=== PATIENT | male | born 1950 | race Caucasian/White ===

== ENCOUNTER 2017-10-27 12:56 | Emergency (ER) | payer MEDICARE, MEDICAID ==
[~2017-10-27] VITALS: Ht 170.2 cm; Wt 63.8 kg
[~2017-10-27 12:56] MED LIST: NO HOME MEDS
[2017-10-27 13:27] LABS: BASOPHILS % (AUTO) 0 % (0-1); EOSINOPHILS # (AUTO) 0.1 X10'3 (0-0.9); EOSINOPHILS % (AUTO) 2.3 % (0-6); HEMATOCRIT 33.4 % (42.0-52.0); LYMPHOCYTES # (AUTO) 0.7 X10'3 (1.1-4.8); LYMPHOCYTES % (AUTO) 16.6 % (21-51); MEAN CORPUSCULAR HEMOGLOBIN 18.3 PG (27.0-31.0); MEAN CORPUSCULAR HGB CONC 29.8 % (33.0-36.5); MEAN CORPUSCULAR VOLUME 61.5 FL (78-98); MEAN PLATELET VOLUME 8.8 FL (7.4-10.4); MONOCYTES # (AUTO) 0.2 X10'3 (0-0.9); MONOCYTES % (AUTO) 4.9 % (2-12); NEUTROPHILS # (AUTO) 3.3 X10'3 (1.8-7.7); NEUTROPHILS % (AUTO) 76.2 % (42-75); PLATELET COUNT 190 X10'3 (140-440); RED BLOOD COUNT 5.43 X10'6 (4.70-6.10); RED CELL DISTRIBUTION WIDTH 20.1 % (11.5-14.5); WHITE BLOOD COUNT 4.3 X10'3 (4.5-11.0)
[2017-10-27 13:33] LABS: PARTIAL THROMBOPLASTIN TIME 23 SECONDS (22-32); PROTHROMBIN TIME 10.3 SECONDS (9.0-12.0)
[2017-10-27 13:36] LABS: ALANINE AMINOTRANSFERASE 27 U/L (12-78); ALBUMIN 4.4 G/DL (3.4-5.0); ALKALINE PHOSPHATASE 71 IU/L (46-116); ANION GAP 12 (8-16); ASPARTATE AMINO TRANSFERASE 13 U/L (10-37); BILIRUBIN,TOTAL 0.6 MG/DL (0.1-1.0); BLOOD UREA NITROGEN 18 MG/DL (7-18); CALCIUM 9.2 MG/DL (8.5-10.1); CHLORIDE 100 MMOL/L (99-107); CREATININE 1.06 MG/DL (0.60-1.10); GLUCOSE 168 MG/DL (70-104); POTASSIUM 4.2 MMOL/L (3.5-5.1); SODIUM 137 MMOL/L (135-145); TOTAL CARBON DIOXIDE 24.8 MMOL/L (24-32); TOTAL PROTEIN 8.6 G/DL (6.4-8.2); eGFR 70 ML/MIN
[2017-10-27 13:40] LABS: ANISOCYTOSIS 2+; HYPOCHROMASIA 1+; LARGE PLATELETS FEW; MICROCYTOSIS 2+; PLATELET ESTIMATE NORMAL
[2017-10-27] MEDS ORDERED: ipratropium/albuterol 3ml nebule NEB ONE (13:50)
[2017-10-27] MEDS ORDERED: normal saline 1000ML IV soln IVB ONE (13:50)
[2017-10-27 14:13] LABS: OCCULT BLOOD STOOL NEGATIVE (Neg)
[2017-10-27 14:44] LABS: MAGNESIUM 1.9 MG/DL (1.5-2.4)
[2017-10-27] MEDS ORDERED: MULT1TAB74 PO (17:08)
[2017-10-27] MEDS ORDERED: multivitamins, therapeutics tablet PO STA (17:08)
[2017-10-27] MEDS ORDERED: folic acid 1mg tablet PO ONE (17:10)
[2017-10-27 17:44] VITALS: BP 135/67
== END 2017-10-27 17:46 | disposition home or self-care (01) ==
LOC: ER 12:56
DX: E86.0 Dehydration (principal); R00.2 Palpitations; R42 Dizziness and giddiness; F17.200 Nicotine dependence, unspecified, uncomplicated; F12.10 Cannabis abuse, uncomplicated; M19.90 Unspecified osteoarthritis, unspecified site; Z79.899 Other long term (current) drug therapy
CPT/HCPCS: 36415; 70450; 71045; 80053; 82272; 83735; 83880; 84443; 84484; 85025; 85610; 85730; 87502; 87503; 94640; 94760; 96360; 99285; J7030

== ENCOUNTER 2017-10-30 18:28 | Emergency (ER) | payer MEDICARE, MEDICAID ==
[~2017-10-30] VITALS: Ht 200.7 cm; Wt 72.7 kg
[~2017-10-30 18:28] MED LIST changes: +MULT1TAB74 PO
[2017-10-30 19:12] LABS: BASOPHILS % (AUTO) 0 % (0-1); EOSINOPHILS # (AUTO) 0.1 X10'3 (0-0.9); EOSINOPHILS % (AUTO) 1.7 % (0-6); HEMATOCRIT 30.2 % (42.0-52.0); HEMOGLOBIN 9.1 g/dl (14.0-17.9); LYMPHOCYTES # (AUTO) 0.4 X10'3 (1.1-4.8); LYMPHOCYTES % (AUTO) 4.8 % (21-51); MEAN CORPUSCULAR HEMOGLOBIN 18.5 PG (27.0-31.0); MEAN CORPUSCULAR HGB CONC 30.1 % (33.0-36.5); MEAN CORPUSCULAR VOLUME 61.2 FL (78-98); MEAN PLATELET VOLUME 8.8 FL (7.4-10.4); MONOCYTES # (AUTO) 0.4 X10'3 (0-0.9); MONOCYTES % (AUTO) 4.1 % (2-12); NEUTROPHILS # (AUTO) 7.7 X10'3 (1.8-7.7); NEUTROPHILS % (AUTO) 89.4 % (42-75); PLATELET COUNT 181 X10'3 (140-440); RED BLOOD COUNT 4.93 X10'6 (4.70-6.10); RED CELL DISTRIBUTION WIDTH 19.1 % (11.5-14.5); WHITE BLOOD COUNT 8.6 X10'3 (4.5-11.0)
[2017-10-30 19:19] LABS: PROTHROMBIN TIME 10.4 SECONDS (9.0-12.0)
[2017-10-30 19:26] LABS: ALANINE AMINOTRANSFERASE 28 U/L (12-78); ALBUMIN 4.2 G/DL (3.4-5.0); ALBUMIN/GLOBULIN RATIO 1.1 (1.1-1.5); ALKALINE PHOSPHATASE 66 IU/L (46-116); ANION GAP 10 (8-16); ASPARTATE AMINO TRANSFERASE 15 U/L (10-37); BILIRUBIN,TOTAL 0.5 MG/DL (0.1-1.0); BLOOD UREA NITROGEN 18 MG/DL (7-18); CALCIUM 9.3 MG/DL (8.5-10.1); CHLORIDE 101 MMOL/L (99-107); GLUCOSE 165 MG/DL (70-104); POTASSIUM 4.2 MMOL/L (3.5-5.1); SODIUM 138 MMOL/L (135-145); TOTAL CARBON DIOXIDE 27.2 MMOL/L (24-32); TOTAL PROTEIN 8.1 G/DL (6.4-8.2); eGFR 75 ML/MIN
[2017-10-30] MEDS ORDERED: POLY17PO10 PO (21:57)
[2017-10-30 22:24] VITALS: BP 115/73
[2017-10-30 23:16] LABS: ANISOCYTOSIS 2+; HYPOCHROMASIA 2+; MICROCYTOSIS 2+; PLATELET ESTIMATE NORMAL; POIKILOCYTOSIS FEW; POLYCHROMASIA FEW; TARGET CELLS FEW
[2017-10-30 23:17] LABS: ELLIPTOCYTES FEW; STOMATOCYTES FEW
== END 2017-10-30 22:28 | disposition home or self-care (01) ==
LOC: ER 18:29
DX: K59.00 Constipation, unspecified (principal); R19.7 Diarrhea, unspecified; K62.89 Other specified diseases of anus and rectum; M19.90 Unspecified osteoarthritis, unspecified site; F17.210 Nicotine dependence, cigarettes, uncomplicated; F12.10 Cannabis abuse, uncomplicated; Z79.899 Other long term (current) drug therapy
CPT/HCPCS: 36415; 74018; 80053; 85025; 85610; 99285

== ENCOUNTER 2017-11-06 13:39 | Emergency (ER) | payer MEDICARE, MEDICAID ==
[~2017-11-06] VITALS: Ht 170.2 cm; Wt 64.0 kg
[~2017-11-06 13:39] MED LIST changes: +POLY17PO10 PO
[2017-11-06] MEDS: normal saline 1000ML IV soln IVB ONE (16:35)
[2017-11-06] MEDS: bisacodyl 10mg suppository rectal RC STA (16:39)
[2017-11-06] MEDS: lactulose 20gm/30ml cup PO ONE (16:39)
[2017-11-06] MEDS: methylnaltrexone br 12mg/0.6ml inj***SubQ only SQ ONE (16:40)
[2017-11-06 16:57] LABS: ALANINE AMINOTRANSFERASE 30 U/L (12-78); ALBUMIN/GLOBULIN RATIO 1.1 (1.1-1.5); ALKALINE PHOSPHATASE 64 IU/L (46-116); ANION GAP 10 (8-16); ASPARTATE AMINO TRANSFERASE 12 U/L (10-37); BILIRUBIN,TOTAL 0.4 MG/DL (0.1-1.0); BLOOD UREA NITROGEN 13 MG/DL (7-18); BUN/CREATININE RATIO 14.4 (5.4-32.0); CHLORIDE 102 MMOL/L (99-107); GLUCOSE 91 MG/DL (70-104); POTASSIUM 4.2 MMOL/L (3.5-5.1); SODIUM 138 MMOL/L (135-145); TOTAL CARBON DIOXIDE 25.6 MMOL/L (24-32); TOTAL PROTEIN 7.7 G/DL (6.4-8.2); eGFR 84 ML/MIN
[2017-11-06 17:19] LABS: HEMATOCRIT 24.7 % (42.0-52.0); HEMOGLOBIN 7.6 g/dl (14.0-17.9); MEAN CORPUSCULAR HEMOGLOBIN 18.5 PG (27.0-31.0); MEAN CORPUSCULAR HGB CONC 30.8 % (33.0-36.5); MEAN CORPUSCULAR VOLUME 59.9 FL (78-98); MEAN PLATELET VOLUME 8.7 FL (7.4-10.4); PLATELET COUNT 192 X10'3 (140-440); RED BLOOD COUNT 4.13 X10'6 (4.70-6.10); RED CELL DISTRIBUTION WIDTH 20.1 % (11.5-14.5); WHITE BLOOD COUNT 6.1 X10'3 (4.5-11.0)
[2017-11-06] MEDS ORDERED: BISA10SU60 RC (17:27)
[2017-11-06 17:35] LABS: TOTAL CELLS COUNTED 100
[2017-11-06 17:36] LABS: PLATELET ESTIMATE NORMAL
[2017-11-06 17:37] LABS: ANISOCYTOSIS 2+; HYPOCHROMASIA 3+; MICROCYTOSIS 2+
[2017-11-06 18:10] VITALS: BP 139/68
== END 2017-11-06 18:11 | disposition home or self-care (01) ==
LOC: ER 13:39
DX: K59.00 Constipation, unspecified (principal); M19.90 Unspecified osteoarthritis, unspecified site; F12.10 Cannabis abuse, uncomplicated
CPT/HCPCS: 36415; 74018; 80053; 85025; 96360; 96372; 99285; J7030